=== PATIENT | female | born 1970 | race Caucasian/White ===

== ENCOUNTER 2022-02-05 06:15 | Day surgery (SDC) | payer OTHER, SELFPAY ==
--- NOTE | 2022-02-05 06:08 | P.ANESASSM_ITS ---
Pre-Anesthetic Assessment Height/Weight: Height 1.68 m Weight 104.326 kg Preop Diagnosis: chronic abdominal pain Operation Date: 02/05/22 08:00 Proposed Procedures p EGD 40471 20681 R10.9 R11.0 Z12.11(Not Applicable) - Herbert Campos MD s Colonoscopy(Not Applicable) - Herbert Campos MD Familial anesthetic complications: none Was Beta Ольга taken within 24 hours: N/A Was Clonidine taken within 24 hours: N/A Social No alcohol and No tobacco Exam alert, oriented x 3, clear to auscultation bilaterally and regular rate & rhythm Airway Submandibular: within normal limits Cervical ROM: within normal limits Mallampati: Class I Dentition: full Pulmonary None reported CV/HEM None reported METS > 4 None reported Hepatic None reported GI GERD Reflux Chronic post prandial pain Metabolic None reported Musc/skel None reported Neuropsych Anxiety Anesthetic Plan ASA status: 2 Anesthesia: Anesthesia Evaluation and MAC Other: I discussed with the patient risks, goals, and benefits of MAC and general anesthesia. We discussed spectrum of MAC anesthesia including conversion to general as well as possibility of recall of intraoperative stimuli including discomfort/pain. Patient agrees to proceed with MAC. Risk of > 500 ml blood loss (7ml/kg in children): No Medications/Allergies Home Medications Medication Instructions Recorded Confirmed Last Taken Type escitalopram oxalate 10 mg tablet 10 mg PO DAILY 05/12/21 02/05/22 02/04/22 History (Lexapro) estradiol 2 mg tablet 2 mg PO DAILY 11/26/21 02/05/22 02/04/22 History Allergies Allergy/AdvReac Type Severity Reaction Status Date / Time benzonatate Allergy nausea Verified 02/05/22 06:34 [From Tessalon Perles] clarithromycin [From Biaxin] Allergy nausea Verified 02/05/22 06:34 [facility] Anesthesia Medical History Anxiety History of basal cell cancer Surgical History History of appendectomy History of hysterectomy History of skin surgery Family History Other Cancer Hypertension Social History Smoking and tobacco status: former smoker Data Anesthesia Cardiac Studies: No Data to Display
[2022-02-05 06:35] VITALS: BP 128/92; PULSE 67; RESP 18; TEMP 36.2; O2SAT 97
[2022-02-05] MEDS: sodium chloride 0.9% 1,000 ML 30 ML IV (06:52)
--- NOTE | 2022-02-05 06:59 | P.HP_ITS ---
Same Day Surgery H&P Indication for Procedure/HPI DATE OF PROCEDURE: February 05, 2022 CHIEF COMPLAINT/INDICATIONFOR SURGICAL PROCEDURE: egd/colonoscopy PREOP DIAGNOSIS: upper gi symptoms PLANNED PROCEDURE: Operation Date: 02/05/22 08:00 Proposed Procedures p EGD 96805 40570 R10.9 R11.0 Z12.11(Not Applicable) - Herbert Campos MD s Colonoscopy(Not Applicable) - Herbert Campos MD Medications/Allergies* Home Medications Medication Instructions Recorded Confirmed Type escitalopram oxalate 10 mg tablet 10 mg PO DAILY 05/12/21 02/05/22 History (Lexapro) estradiol 2 mg tablet 2 mg PO DAILY 11/26/21 02/05/22 History Allergies/Adverse Reactions Allergy/AdvReac Type Severity Reaction Status Date / Time benzonatate Allergy nausea Verified 02/05/22 06:34 [From Tessalon Perles] clarithromycin [From Biaxin] Allergy nausea Verified 02/05/22 06:34 Current Medications: Generic Name Dose Route Start Last Admin Trade Name Freq PRN Reason Stop Dose Admin Sodium Chloride 1,000 mls @ 30 mls/hr 02/05/22 06:30 02/05/22 06:52 Sodium Chloride 0.9% IV 02/06/22 06:29 30 mls/hr .Q24H [facility] Administration Pertinent History/Comorbid Conditions* Medical History (Updated 11/26/21 @ 09:56 by Herbert Campos MD) Anxiety History of basal cell cancer Surgical History (Updated 11/26/21 @ 09:56 by Herbert Campos MD) History of appendectomy History of hysterectomy History of skin surgery Family History (Updated 11/26/21 @ 09:30 by Tiffanie Landers MA) Cancer Hypertension Social History Smoking and tobacco status: former smoker Pertinent Exam Findings alert, oriented x 3 and regular rate & rhythm Recommendations Surgery/Procedure today Coding Level of Care Code Acute Hat Cone Inspector for Fantag Ladonna
[2022-02-05 07:30] VITALS: BP 104/76; PULSE 71; RESP 16; TEMP 36.3; O2SAT 92
[2022-02-05 07:39] VITALS: BP 132/61; PULSE 59; RESP 16; O2SAT 93
--- NOTE | 2022-02-05 11:03 | ANE.PACU2 ---
Inpatient post-anesthesia follow up: Airway intact: Yes Vital signs: Temperature 97.3 F Pulse Rate 59 Respiratory Rate 16 Blood Pressure 132/61 Pulse Oximetry 93 Oxygen Delivery Me thod Room Air Oxygen Flow Rate Fraction of Inspir ed Oxygen Hydration adequate: Yes Nausea and vomiting: No Pain level: 1 Mental status: Baseline
== END 2022-02-05 07:51 | disposition home or self-care (01) ==
PROVIDERS: PCP Family Medicine; Visit Provider Surgery
PROC: 0DJ08ZZ Inspection of Upper Intestinal Tract, Via Natural or Artificial Opening Endoscopic (ICD-10-PCS; CPT 43235; principal; 2022-02-05 08:00)
PROC: 0DJD8ZZ Inspection of Lower Intestinal Tract, Via Natural or Artificial Opening Endoscopic (ICD-10-PCS; CPT 45378; 2022-02-05 08:00)
DX: Z12.11 Encounter for screening for malignant neoplasm of colon (principal); R10.9 Unspecified abdominal pain; R11.2 Nausea with vomiting, unspecified; K20.90 Esophagitis, unspecified without bleeding; D12.2 Benign neoplasm of ascending colon; Z87.891 Personal history of nicotine dependence
CPT/HCPCS: 43239; 45385; 88305; J2704; J7030

== ENCOUNTER 2022-02-18 06:03 | Outpatient (CLI) | payer OTHER, SELFPAY ==
--- NOTE | 2022-02-18 06:15 | US_ITS ---
WS: [id number] RIGHT UPPER QUADRANT ULTRASOUND HISTORY: Intermittent abdominal pain. COMPARISON: None available. Liver: 12.7 cm in length. Normal size liver. Mild diffuse coarsened echotexture. No mass or bile duct dilatation. Portal Vein: Normal hepatopetal flow with monophasic waveform. Gallbladder: Gallbladder is normally distended but nearly completely filled with multiple stones and shadowing. No pericholecystic fluid. CBD: 0.2 cm Pancreas: Normal size and echogenicity. Right kidney: 11.7 cm in length. Normal size and echogenicity. No hydronephrosis or mass. Aorta and IVC: Unremarkable abdominal aorta and IVC. No ascites. US/US gall bladder [id number] IMPRESSION: 1. Cholelithiasis. Numerous stones distended gallbladder. 2. Mild hepatic steatosis. 3. No bile duct dilatation.
== END 2022-02-18 06:04 | disposition home or self-care (01) ==
LOC: RAD 06:03
PROVIDERS: PCP Family Medicine; Visit Provider Surgery
DX: R10.9 Unspecified abdominal pain (principal); K80.20 Calculus of gallbladder without cholecystitis without obstruction; K76.0 Fatty (change of) liver, not elsewhere classified
CPT/HCPCS: 76705

== ENCOUNTER 2023-04-15 10:58 | Emergency (ER) | payer OTHER, SELFPAY ==
[2023-04-15 11:03] VITALS: BP 141/75; PULSE 75; RESP 18; TEMP 36.8; O2SAT 95; BMI 36.3
--- NOTE | 2023-04-15 11:18 | ED_ITS ---
HPI - Abdominal Pain General: Chief Complaint: Abdominal Pain Stated Complaint: lower abd pain Time Seen by Provider: 04/15/23 11:17 Source: patient Mode of arrival: ambulatory Limitations: no limitations History of Present Illness: Patient is a very nice 52-year-old female presents to ED today with complaint of left lower quadrant pain over the past 3 days or so. Patient states symptoms have seemed to worsen since onset. She is not having any nausea or vomiting. She denies any change to her bowel movements as far as consistency/caliber but has noticed that she has some slight pain with defecation. Patient has not noticed any fevers but she has had some mild body aches. Patient is concerned for possible diverticulitis that she has a family member that has had this previously and described similar symptoms. Patient denies urinary complaints. MD elicited complaint: abdominal pain Pertinent past history: none Onset (ago): day(s) Pain Consistency: constant Location: LLQ Severity: moderate Quality: sharp Radiation: none Migration to: no migration Exacerbating factors: nothing Relieving factors: nothing Associated Symptoms: Denies chills, diarrhea, dysuria, fever(s), heartburn, hematochezia, melena, nausea and vomiting Related Data: Patient : No Review of Systems Const: Reports: body aches; Denies: fever(s), chills, fatigue or malaise Card: Denies: chest pain Resp: Denies: dyspnea GI: Reports: abdominal pain and pain on defecation; Denies: nausea, vomiting, heartburn, diarrhea, hematochezia, melena, mucus in stool, white/light colored stool or steatorrhea : Denies: flank pain, difficulty voiding, dysuria, urinary frequency, urinary urgency or urinary hesitancy Musc: Denies: neck pain, back pain, extremity pain or joint pain Skin/Breast: Denies: rash Neuro: Denies: headache(s), numbness in extremities, weakness in extremities or sensory changes PFSH ED PFSH: Medical History Anxiety Cholelithiasis History of basal cell cancer Surgical History H/O esophagogastroduodenoscopy (02/05/22) History of appendectomy History of hysterectomy History of skin surgery Status post colonoscopy (02/05/22) Family History Other Cancer Hypertension Social History Smoking and tobacco status: former smoker Physical Exam Const: COMMON NORMALS: no acute distress, patient oriented x3, no limitations, alert and well nourished GENERAL APPEARANCE: cooperative Eye: COMMON NORMALS: no scleral icterus Resp: COMMON NORMALS: normal respiratory effort and clear to auscultation bilaterally AUSCULTATION: clear to auscultation bilaterally Cardio: COMMON NORMALS: regular rate and regular rhythm RATE: regular rate RHYTHM: regular rhythm GI: COMMON NORMALS: Normal to inspection, nondistended, normoactive bowel sounds present, Soft to palpation, No hepatosplenomegaly present and no masses INSPECTION: Yes normal to inspection AUSCULTATION: Yes normoactive bowel sounds PALPATION: Yes Soft to palpation, Yes Tenderness to palpation present (GI) Details: LLQ, No Guarding due to palpation present (GI), No Rigid due to palpation and Yes No hepatosplenomegaly present : COMMON NORMALS: Yes no CVA tenderness BLADDER/KIDNEY EXAM: Yes no CVA t enderness Back/Pelvis: COMMON NORMALS: no CVA tenderness Extremity: COMMON NORMALS: normal to inspection GENERAL: Yes normal exam except as noted Neuro: BRIDGET COMA SCALE: document GCS findings Bridget coma scale eye opening: Spontaneous Bridget coma scale verbal response: Orientated Bridget coma scale motor response: Obey commands [place] coma scale total score: 15 COMMON NORMALS: patient oriented x3, moves all extremities, no focal motor deficits and no sensory deficits noted SENSORIUM/ORIENTATION: Yes alert Skin: COMMON NORMALS: no rashes or lesions noted GENERAL SKIN EXAM: no rashes or lesions noted Course Vital Signs: Vital signs: Vital Signs Temperature 98.2 F 04/15/23 11:03 Pulse Rate 76 04/15/23 13:31 Respiratory Rate 17 04/15/23 11:46 Blood Pressure 129/75 04/15/23 13:31 Pulse Oximetry 95 04/15/23 13:31 Oxygen Delivery Me thod Room Air 04/15/23 13:31 MDM - Abdominal Pain Medical Decision Making Patient is a nice 52-year-old female here for complaints of left lower quadrant abdominal pain. Patient CT scan showing acute uncomplicated diverticulitis. Her vital signs are normal. Her white count is normal. She clinically appears well. We will place her on Augmentin as well as something for pain/nausea and recommend bland liquid diet with advancing as tolerated. Strict return ED precautions given. Otherwise I would like her to follow-up with her primary care provider later this week for reevaluation. UA today nonspecific. She does have 3+ blood. Presence of clue cells. Is not complaining of any vaginal discharge or vaginal odor. She has no UTI-like symptoms. Recommend primary care just repeat this if needed. Lab Data 04/15/23 11:22 04/15/23 11:22 Labs/Radiology: Laboratory Results WBC 10.82 10^3/uL (3.29-11.43) 04/15/23 11:22 RBC 4.46 10^6/uL (3.85-5.65) 04/15/23 11:22 Hgb 13.30 g/dL (11.27-16.99) 04/15/23 11:22 Hct 40.9 % (36-47) 04/15/23 11:22 MCV 91.7 fl (85-98) 04/15/23 11:22 MCH 29.8 pg (27-33) 04/15/23 11:22 MCHC 32.5 g/dL (30-55) 04/15/23 11:22 RDW 13.2 % (12.1-15.1) 04/15/23 11:22 Plt Count 283 10^3/cmm (157-399) 04/15/23 11: MPV 10.1 fL (7.4-10.4) 04/15/23 11:22 Neut % (Auto) 72.1 % 04/15/23 11:22 Lymph % (Auto) 18.6 % 04/15/23 11:22 [place]bot % (Auto) 7.3 % 04/15/23 11:22 Eos % (Auto) 1.2 % 04/15/23 11:22 Baso % (Auto) 0.4 % 04/15/23 11:22 Neut # (Auto) 7.81 10^3/uL (1.8-7.7) H 04/15/23 11:22 Lymph # (Auto) 2.0 10^3/uL (0.8-4.8) 04/15/23 11:22 [place]bot # (Auto) 0.8 10^3/uL (0.2-0.9) 04/15/23 11:22 Eos # (Auto) 0.1 10^3/uL (0.0-0.8) 04/15/23 11:22 Baso # (Auto) 0.0 10^3/uL (0.0-0.1) 04/15/23 11:22 Nucleated RBC % (auto) 0 % 04/15/23 11:22 Nucleated RBCs # 0.0 /100WBC 04/15/23 11:22 Sodium 136 mmol/L (136-145) 04/15/23 11:22 Potassium 4.4 mmol/L (3.5-5.1) 04/15/23 11:22 Chloride 98 mmol/L (98-107) 04/15/23 11:22 Carbon Dioxide 26 mmol/L (22-29) 04/15/23 11:22 Anion Gap 16.4 (5-19) 04/15/23 11:22 BUN 9 mg/dL (6-20) 04/15/23 11:22 Creatinine 0.7 mg/dL (0.5-0.9) 04/15/23 11:22 GFR Calculation 87.2 mL/min (90-130) L 04/15/23 11:22 Glucose 106 mg/dL (65-115) 04/15/23 11:22 Calculated Osmolality 281 mOsm/kg (285-295) L 04/15/23 11:22 Calcium 9.2 mg/dL (8.5-10.5) 04/15/23 11:22 Total Bilirubin 1.0 mg/dL (0.15-1.2) 04/15/23 11:22 AST 21 U/L (0-32) 04/15/23 11:22 ALT 9 U/L (0-33) 04/15/23 11:22 Alkaline Phosphatase 43 U/L (35-105) 04/15/23 11:22 Total Protein 6.8 g/dL (6.6-8.7) 04/15/23 11:22 Albumin 4.2 g/dL (3.5-5.2) 04/15/23 11:22 Globulin 2.6 g/dL (1.3-4.6) 04/15/23 11:22 Lipase 46 U/L (13-60) 04/15/23 11:22 Urine Color Yellow (Yellow) 04/15/23 12:19 Urine Appearance Sl hazy (CLEAR) A 04/15/23 12:19 Urine pH 6 (5-7) 04/15/23 12:19 Ur Specific Kite 1.010 (1.005-1.030) 04/15/23 12:19 Urine Protein Trace (Negative) 04/15/23 12:19 Urine Glucose (UA) Norm (Normal) 04/15/23 12:19 Urine Ketones 2+ (Negative) H 04/15/23 12:19 Urine Blood 3+ (Negative) H 04/15/23 12:19 Urine Nitrate Negative (Negative) 04/15/23 12:19 Urine Bilirubin 1+ (Negative) H 04/15/23 12:19 Urine Urobilinogen 4 mg/dL (Negative) H 04/15/23 12:19 Ur Leukocyte Esterase Trace (Negative) H 04/15/23 12:19 Urine RBC 10-15 /hpf (0-2) H 04/15/23 12:19 Urine WBC 0-4 /hpf (0-5) H 04/15/23 12:19 Ur Squamous Epith Cells 5-10 /hpf (0-5) H 04/15/23 12:19 Amorphous Sediment Not Reportable 04/15/23 12:19 Urine Bacteria 2+ /hpf (NONE) H 04/15/23 12:19 Urine Mucus 1+ /hpf 04/15/23 12:19 All radiology interpretation(s) finalized by discharge Discharge Plan Discharge Patient Disposition: Home Clinical Impression: Diverticulitis Condition: Stable Prescriptions: New hydrocodone-acetaminophen 5-325 mg tablet 1 tab PO Q6H PRN (Reason: pain) Qty: 10 0RF ondansetron 4 mg tablet,disintegrating 4 mg PO Q8H PRN (Reason: nausea and vomiting) Qty: 14 0RF amoxicillin-pot clavulanate 875-125 mg tablet 1 tab PO BID Qty: 14 0RF No Action escitalopram oxalate [Lexapro] 10 mg tablet 10 mg PO DAILY estradiol 2 mg tablet 2 mg PO DAILY Discharge Orders: Discharge ED (Routine); Ordered 04/15/23 Ordered By: Nara Tang Referrals: Mei Grace NP [Primary Care Provider] - Patient Instructions: Diverticulitis (DC), Opioid Safety, Pain Management Activity Restrictions/Additional Instructions: As we discussed and when she did do a bland liquid diet over the next 48 hours and slowly advance as tolerated. Take your antibiotics as prescribed. You may take your pain and nausea medications as needed. As we discussed you need to return to the emergency department for worsening abdominal pain, generally feeling worse or unwell, repetitive episodes of vomiting or diarrhea, bloody stools, fevers, inability to hold down your antibiotics, or any other concerns you may have. Coding Level of Care Code ED Sales Service Coordinator for Sarita Dougherty
--- NOTE | 2023-04-15 11:32 | CT_ITS ---
WS: [id number] CT ABDOMEN PELVIS TECHNIQUE: Contrast-enhanced CT of the abdomen and pelvis with coronal and sagittal reformatted image s. CLINICAL INFORMATION: LLQ abdominal pain COMPARISON: None. DLP: 1071.[address] scans at [facility] use at least one of these dose optimization techniques: automated e xposure control; mA and/or kV adjustment per patient size (includes targeted exams where dose is matc hed to clinical indication); or iterative reconstruction. FINDINGS: Inflammatory stranding and edema with wall thickening sigmoid colon LEFT lower quadrant compatible wi th acute diverticulitis. No evidence of drainable abscess or fluid collection. Suggestion of a single tiny punctate locule of adjacent air. Recommend follow-up to resolution. No evidence of obstruction. Diffuse fatty filtration of the liver. Small RIGHT hepatic cyst or hemangioma measuring 8 mm. Normal GE junction. Air-fluid level in the stomach. Fat-containing umbilical hernia. Normal portal vein and splenic vein. Normal pancreas. Adrenal glands are normal. Normal renal parenchymal enhancement. No hy dronephrosis. A few small incidental renal cysts. Normal caliber abdominal aorta. Celiac and SMA are patent. Evidence of prior appendectomy. No free fluid in the pelvis. IMPRESSION: 1. Inflammatory stranding and edema with wall thickening involving the sigmoid colon in the LEFT low er quadrant compatible with acute uncomplicated diverticulitis. No drainable abscess or fluid collect ion. Associated surrounding induration. Recommend follow-up to resolution. 2. Cholelithiasis. 3. Mild diffuse fatty filtration of the liver. 4. No free fluid in the abdomen or pelvis. 5. No other acute findings. Notified DEMARCUS Schmitz at 04/15/2023 1:55 PM.
[2023-04-15 11:38] LABS: Basophils % 0.4 %; Eosinophils # 0.1 10^3/uL (0.0-0.8); Eosinophils % 1.2 %; Hematocrit 40.9 % (36-47); Lymphocytes % 18.6 %; Mean Corpuscular HGB Conc 32.5 g/dL (30-55); Mean Corpuscular Hemoglobin 29.8 pg (27-33); Mean Corpuscular Volume 91.7 fl (85-98); Mean Platelet Volume 10.1 fL (7.4-10.4); Monocytes # 0.8 10^3/uL (0.2-0.9); Monocytes % 7.3 %; Neutrophils # 7.81 10^3/uL (1.8-7.7); Neutrophils % 72.1 %; Nucleated Red Blood Cells % 0 %; Platelet Count 283 10^3/cmm (157-399); Red Blood Count 4.46 10^6/uL (3.85-5.65); Red Cell Distribution Width 13.2 % (12.1-15.1); White Blood Count 10.82 10^3/uL (3.29-11.43)
[2023-04-15 11:46] VITALS: RESP 17; O2SAT 96
[2023-04-15] MEDS: ondansetron 2 mg/ML SDV 2 mL 4 MG IVP (11:46)
[2023-04-15] MEDS: morphine 4 mg/mL SDV 1 mL IVP (11:46)
[2023-04-15 11:48] LABS: Alanine Aminotransferase 9 U/L (0-33); Albumin Level 4.2 g/dL (3.5-5.2); Alkaline Phosphatase 43 U/L (35-105); Anion Gap 16.4 (5-19); Aspartate Amino Transferase 21 U/L (0-32); Blood Urea Nitrogen 9 mg/dL (6-20); Calcium 9.2 mg/dL (8.5-10.5); Carbon Dioxide 26 mmol/L (22-29); Chloride 98 mmol/L (98-107); Globulin 2.6 g/dL (1.3-4.6); Glomerular Filtration Rate 87.2 mL/min (90-130); Glucose 106 mg/dL (65-115); Lipase 46 U/L (13-60); Osmolality Calculated 281 mOsm/kg (285-295); Potassium 4.4 mmol/L (3.5-5.1); Sodium 136 mmol/L (136-145); Total Protein 6.8 g/dL (6.6-8.7)
[2023-04-15 12:09] VITALS: BP 128/74; PULSE 75; O2SAT 96
[2023-04-15 13:17] LABS: Add Urine Microscopic? YES; Bilirubin Urine 1+ (Negative); Blood Urine 3+ (Negative); Glucose Urine UA Norm (Normal); Ketones Urine 2+ (Negative); Leukocyte Esterase Urine Trace (Negative); Nitrate Urine Negative (Negative); Protein Urine Trace (Negative); Urine Appearance SL Hazy (CLEAR); Urine Color Yellow (Yellow); Urobilinogen Urine 4 mg/dL (Negative); WBC Urine 0-4 /hpf (0-5); pH Urine 6 (5-7)
[2023-04-15 13:18] LABS: Bacteria Urine 2+ /hpf; Mucus Urine 1+ /hpf
[2023-04-15 13:19] LABS: Add Urine Culture? Yes
[2023-04-15 13:31] VITALS: BP 129/75; PULSE 76; O2SAT 95
== END 2023-04-15 14:41 | disposition home or self-care (01) ==
PROVIDERS: Emergency Provider Physician Assistant; PCP Nurse Practitioner Family
DX: K57.92 Diverticulitis of intestine, part unspecified, without perforation or abscess without bleeding (principal); Z87.891 Personal history of nicotine dependence
CPT/HCPCS: 74177; 80053; 81001; 83690; 85025; 87086; 96374; 96375; 99285; J2270; J2405; Q9967

== ENCOUNTER → 2023-08-30 12:06 | Outpatient (BNVA) | payer OTHER, SELFPAY | PROVIDERS: PCP Nurse Practitioner Family; Visit Provider Nurse Practitioner Family | DX: N39.0 Urinary tract infection, site not specified (principal) | CPT/HCPCS: 81000; 87077; 87086; 87184 ==

== ENCOUNTER → 2025-03-15 13:20 | Outpatient (BNVA) | payer OTHER, SELFPAY | PROVIDERS: PCP Family Medicine; Visit Provider Family Medicine | DX: Z13.6 Encounter for screening for cardiovascular disorders (principal) | CPT/HCPCS: 80053; 80061; 83036; 84439; 84443; 85025 ==

== ENCOUNTER 2025-04-04 09:48 | Outpatient (CLI) | payer OTHER, SELFPAY ==
--- NOTE | 2025-04-04 10:00 | MM_ITS ---
WS: [id number] BILATERAL 3D TOMOSYNTHESIS DIGITAL SCREENING MAMMOGRAPHY WITH CAD CLINICAL INFORMATION: screening HISTORY: Screening mammogram. No current complaints. COMPARISON: None. TECHNIQUE: Bilateral CC and MLO views. FINDINGS: Scattered fibroglandular densities bilaterally. No suspicious focal mass, asymmetry, calcifications, or architectural distortion. No evidence of malignancy. A few tiny incidental punctate calcifications. MM/MM scr tomosynthesis [id number] IMPRESSION: DENSITY: There are scattered areas of fibroglandular density. BI-RADS: 2 - Benign. FOLLOW UP: 1 Year Follow-up Recommend return to annual screening mammography.
== END 2025-04-04 09:49 | disposition home or self-care (01) ==
PROVIDERS: PCP Family Medicine; Visit Provider Family Medicine
DX: Z12.31 Encounter for screening mammogram for malignant neoplasm of breast (principal); R92.323 Mammographic fibroglandular density, bilateral breasts
CPT/HCPCS: 77063; 77067